=== PATIENT | male | born 1970 | race Caucasian/White ===

== ENCOUNTER 2017-11-18 08:57 | Emergency (ER) | payer OTHER ==
--- NOTE | 2017-11-18 09:35 | ED Physician Documentation ---
History of Present Illness - Stated complaint Stated Complaint: GLF/BACK PX - Chief complaint Chief Complaint: General - Additonal information Additional information: hx from pt 47 male slipped and fell on [employer] ramp while working on the [employer] a week ago landed on buttocks and has had coccyx pain since no numbness no weakness no saddle anesthesia no incontinence no blood in BM did not hit head neck did bump elbow but it does not hurt now not on blood thinners Review of Systems Cardiac: denies: Chest pain / pressure GI: denies: Abdominal Pain, Bloody / black stool : denies: Incontinent Musculoskeletal: reports: Back pain Neurologic: denies: Focal weakness, Numbness PD PAST MEDICAL HISTORY - Past Medical History Past Medical History: Yes Cardiovascular: High cholesterol, [place] - Past Surgical History Past Surgical History: Yes Cardiovascular: Coronary stent - Present Medications Home Medications: Ambulatory Orders Medication Instructions Recorded Confirmed Atenolol 25 mg PO DAILY 07/11/15 11/18/17 Atorvastatin [Lipitor] 60 mg PO DAILY 07/11/15 11/18/17 Lisinopril 10 mg PO DAILY 07/11/15 11/18/17 - Allergies Allergies/Adverse Reactions: Allergies Allergy/AdvReac Type Severity Reaction Status Date / Time shellfish derived Allergy Unknown Verified 07/11/15 10:56 - Social History Does the pt smoke?: No Smoking Status: Never smoker Does the pt drink ETOH?: No Does the pt have substance abuse?: No - Immunizations Immunizations: TDAP current <10years - POLST Patient has POLST: Yes PD ED PE NORMAL - Vitals Vital signs reviewed: Yes - HEENT HEENT: Atraumatic - Cardiac Cardiac: RRR - Respiratory Respiratory: No respiratory distress, Clear bilaterally - Abdomen Abdomen: Soft, Non tender - Back Back: Other (TTP sacral region) - Derm Derm: Normal color - Neuro Neuro: Alert and oriented X 3, No motor deficit, No sensory deficit, Other ( denies saddle anestheisa, hip lfex knee ext foot dorsi plant and great toe ext 5 /5, nl sensation, no clonus) Results - Vitals Vitals: Vital Signs - 24 hr 11/18/17 09:05 Temperature 36.0 C L Heart Rate 66 Respiratory 16 Rate Blood Pressure 115/66 O2 Saturation 98 Oxygen O2 Source Room air Departure - Departure Disposition: 01 Home, Self Care Clinical Impression: Coccyx contusion Qualifiers: Encounter type: initial encounter Qualified Code(s): S30.0XXA - Contusion of lower back and pelvis, initial encounter Condition: Good Instructions: ED Contusion Sacrum Coccyx Comments: Thankfully the xrays were fine - no fracture. This pain will gradually improve. Recommend tylenol motrin and ice as needed. may work as tolerated
--- NOTE | 2017-11-18 10:21 | XRAY Report ---
EXAM: SACRUM AND COCCYX RADIOGRAPHY EXAM DATE: 11/18/2017 10:11 AM. HISTORY: Fall. Pain COMPARISONS: None. TECHNIQUE: 2 views. FINDINGS: Alignment: The sacrum and coccyx are normally aligned. Bones: No fracture or bone lesion. Joints: The sacroiliac joints and included hips are unremarkable. Soft Tissues: Unremarkable. IMPRESSION: Negative sacrum and coccyx radiography. No acute findings. [facility] Referring Provider Line: [phone] SITE ID: [id number]
[2017-11-18 10:59] VITALS: BP 115/82
== END 2017-11-18 11:00 | disposition home or self-care (01) ==
LOC: ED 08:57
DX: S30.0XXA Contusion of lower back and pelvis, initial encounter (principal); W01.0XXA Fall on same level from slipping, tripping and stumbling without subsequent striking against object, initial encounter; Y92.89 Other specified places as the place of occurrence of the external cause; Y99.0 Civilian activity done for income or pay; E78.00 Pure hypercholesterolemia, unspecified; I25.2 Old myocardial infarction
CPT/HCPCS: 72220; 99283

== ENCOUNTER 2022-09-18 07:50 | Outpatient (CLI) | payer OTHER, BC | END 2022-09-18 07:51 | disposition home or self-care (01) | LOC: DI 07:50 | PROVIDERS: ATTEND Internal Medicine Hematology & Oncology | DX: Z01.818 Encounter for other preprocedural examination (principal); C82.22 Follicular lymphoma grade III, unspecified, intrathoracic lymph nodes | CPT/HCPCS: 93306 ==